=== PATIENT | female | born 1975 | race Caucasian/White ===

== ENCOUNTER 2017-12-10 15:44 | Outpatient (CLI) | payer BC ==
--- NOTE | 2017-12-12 18:02 | Mammography Report ---
DIGITAL SCREENING MAMMOGRAM: 12/10/2017 CLINICAL INDICATION: A 42-year-old for screening. COMPARISON: 09/2015, 03/2013. TECHNIQUE: Routine CC and MLO projections were obtained of the breasts. FINDINGS: The breasts again demonstrate heterogeneously dense fibroglandular parenchyma bilaterally. Coarse and punctate, typically benign calcifications are present. No suspicious masses, clustered microcalcifications, or regions of architectural distortion are identified. IMPRESSION: BENIGN FINDINGS. RECOMMENDATION: ROUTINE ANNUAL SCREENING UNLESS OTHERWISE CLINICALLY INDICATED. BIRADS category 2 benign findings. STANDARD QUALIFYING STATEMENTS 1. This examination was reviewed with the aid of Computed-Aided Detection (CAD). 2. A negative or benign imaging report should not delay biopsy if clinically suspicious findings are present. Consider surgical consultation if warranted. More than 5% of cancers are not identified by imaging. 3. Dense breasts may obscure an underlying neoplasm. TD: 12/12/2017 18:01
== END 2017-12-10 15:45 | disposition home or self-care (01) ==
LOC: DI.N 15:44
PROVIDERS: ATTEND Obstetrics & Gynecology
DX: Z12.31 Encounter for screening mammogram for malignant neoplasm of breast (principal)
CPT/HCPCS: 77067

== ENCOUNTER 2021-05-25 08:24 | Outpatient (CLI) | payer BC ==
--- NOTE | 2021-05-26 09:37 | Mammography Report ---
BILATERAL DIGITAL SCREENING MAMMOGRAM 3D/2D: 05/25/2021 CLINICAL: Routine screening. Comparison is made to exams dated: 12/10/2017 mammogram, 09/30/2015 mammogram, and 03/17/2013 mammogram - [facility]. The tissue of both breasts is extremely dense, which lowers the sen sitivity of mammography. There is an oval equal density asymmetry with an obscured and indistinct margin in the right breast m iddle depth medial region seen on the craniocaudal view only. No other significant masses, calcifications, or other findings are seen in either breast. IMPRESSION: INCOMPLETE: NEEDS ADDITIONAL IMAGING EVALUATION The oval equal density asymmetry in the right breast is indeterminate. Mediolateral and spot robert rosa views as well as additional views with possible ultrasound are recommended. This exam was interpreted at Station ID: [id number]. NOTE: For mammograms, a report in lay terms will be sent to the patient. Approximately 15% of breast malignancies will not be visualized mammographically. In the management of a palpable breast mass, a negative mammogram must not discourage biopsy of a clinically suspicious lesion. Electronically Signed By: Tim Ferrari M.D. ddp/penrad:05/25/2021 08:54:31 ACR BI-RADS Category 0: Incomplete 3340F PARENCHYMAL PATTERN: (VD) - The breast(s) demonstrate(s) extremely dense parenchyma, limiting the sen sitivity of mammography. BI-RADS CATEGORY: (0) - 0 Mammo and [place] [id number] Immediate follow-up LATERALITY: (B)
== END 2021-05-25 08:25 | disposition home or self-care (01) ==
LOC: DI.N 08:24
DX: Z12.31 Encounter for screening mammogram for malignant neoplasm of breast (principal)

== ENCOUNTER 2021-06-28 10:40 | Outpatient (CLI) | payer BC ==
--- NOTE | 2021-06-29 15:05 | Mammography Report ---
UNILATERAL RIGHT DIGITAL DIAGNOSTIC MAMMOGRAM 3D/2D: 06/28/2021 CLINICAL: Patient returns today to evaluate an asymmetry in the right breast. Comparison is made to exams dated: 05/25/2021 mammogram, 09/30/2015 mammogram, and 12/10/2017 mammogram - [facility]. The tissue of right breast is extremely dense, which lowers the sen sitivity of mammography. The previously seen asymmetry in the medial right breast partially disperses on spot compression view s and resembles normal fibroglandular tissue. No significant masses, calcifications, or other findings are seen in the breast. IMPRESSION: INCOMPLETE: NEEDS ADDITIONAL IMAGING EVALUATION Targeted ultrasound is recommended for further evaluation and will be performed immediately following this exam. This exam was interpreted at Station ID: [id number]. NOTE: For mammograms, a report in lay terms will be sent to the patient. Approximately 15% of breast malignancies will not be visualized mammographically. In the management of a palpable breast mass, a negative mammogram must not discourage biopsy of a clinically suspicious lesion. Electronically Signed By: Dylan de jesus/sona:06/28/2021 12:17:27 ACR BI-RADS Category 0: Incomplete 3340F PARENCHYMAL PATTERN: (VD) - The breast(s) demonstrate(s) extremely dense parenchyma, limiting the sen sitivity of mammography. BI-RADS CATEGORY: (0) - 0 Ultrasound [id number] Immediate follow-up LATERALITY: (R)
--- NOTE | 2021-06-29 15:05 | Ultrasound Report ---
LIMITED ULTRASOUND OF RIGHT BREAST: 06/28/2021 CLINICAL: Patient returns today to evaluate a focal asymmetry in the right breast. Comparison is made to exams dated: 06/28/2021 mammogram, 05/25/2021 mammogram, and 12/10/2017 mammogram - [facility]. Real-time ultrasound of the right breast 3-4 o'clock region was performed. Felix scale images of the real-time examination were reviewed. Fibroglandular tissue but no mass is identifed in the area of the mammographic asymmetry in the media l right breast. IMPRESSION: NEGATIVE No sonographic abnormality is seen corresponding to the mammographic asymmetry in the medial right br east, which is compatible with normal fibroglandular tissue. There is no sonographic evidence of malignancy. A 1 year screening mammogram is recommended. This exam was interpreted at Station ID: [id number]. Electronically Signed By: Dylan de jesus/sona:06/28/2021 12:21:03 Ultrasound BI-RADS: 1 Negative BI-RADS CATEGORY: (1) - 1 RECOMMENDATION: (ANNUAL) - Recommend routine annual screening mammography. [id number] 1 year screening LATERALITY: (B)
== END 2021-06-28 10:41 | disposition home or self-care (01) ==
LOC: DI 10:40
PROVIDERS: ATTEND Physician Assistant
DX: R92.8 Other abnormal and inconclusive findings on diagnostic imaging of breast (principal)

== ENCOUNTER 2022-06-14 14:37 | Outpatient (CLI) | payer BC ==
--- NOTE | 2022-06-15 12:35 | Mammography Report ---
BILATERAL DIGITAL SCREENING MAMMOGRAM 3D/2D: 06/14/2022 CLINICAL: Routine screening. Comparison is made to exams dated: 06/28/2021 mammogram, 05/25/2021 mammogram, 12/10/2017 mammogram, mammogram, and 03/17/2013 mammogram - [facility]. Both breasts are heterogeneously dense, which may obscure small masses (category c / 51-75% glandula r tissue). No significant masses, calcifications, or other findings are seen in either breast. There has been no significant interval change. IMPRESSION: NEGATIVE There is no mammographic evidence of malignancy. A 1 year screening mammogram is recommended. Based on the Tyrer Cuzick model (a risk assessment model) the patients lifetime risk is 11.3% and he r 10 year risk is 2.5%. According to the ACR, ACS, and NCCN guidelines, an annual breast MRI exam lyssa ng with mammogram is recommended if the patients lifetime risk is 20% or greater. This exam was interpreted at Station ID: [id number]. NOTE: For mammograms, a report in lay terms will be sent to the patient. Approximately 15% of breast malignancies will not be visualized mammographically. In the management of a palpable breast mass, a negative mammogram must not discourage biopsy of a clinically suspicious lesion. Electronically Signed By: Calos friedman/sona:06/14/2022 17:42:52 ACR BI-RADS Category 1: Negative 3341F PARENCHYMAL PATTERN: (D) - The breast(s) demonstrate(s) heterogeneously dense fibroglandular soila langston. BI-RADS CATEGORY: (1) - 1 RECOMMENDATION: (ANNUAL) - Recommend routine annual screening mammography. [id number] 1 year screening LATERALITY: (B)
== END 2022-06-14 14:38 | disposition home or self-care (01) ==
LOC: DI 14:37
PROVIDERS: ATTEND Family Medicine
DX: Z12.31 Encounter for screening mammogram for malignant neoplasm of breast (principal)

== ENCOUNTER 2023-06-19 15:36 | Outpatient (CLI) | payer BC ==
--- NOTE | 2023-06-21 11:22 | Mammography Report ---
BILATERAL DIGITAL SCREENING MAMMOGRAM 3D/2D: 06/19/2023 CLINICAL: Routine screening. Comparison is made to exams dated: 06/14/2022 mammogram, 06/28/2021 ultrasound, 06/28/2021 mammogram, mammogram, and 12/10/2017 mammogram - [facility]. Both breasts are heterogeneously dense, which may obscure small masses (category c / 51-75% glandular tissue). No significant masses, calcifications, or other findings are seen in either breast. There has been no significant interval change. IMPRESSION: NEGATIVE There is no mammographic evidence of malignancy. A 1 year screening mammogram is recommended. Based on the Tyrer Cuzick model (a risk assessment model) the patients lifetime risk is 11.5% and he r 10 year risk is 2.7%. According to the ACR, ACS, and NCCN guidelines, an annual breast MRI exam lyssa ng with mammogram is recommended if the patients lifetime risk is 20% or greater. This exam was interpreted at Station ID: [id number]. NOTE: For mammograms, a report in lay terms will be sent to the patient. Approximately 15% of breast malignancies will not be visualized mammographically. In the management of a palpable breast mass, a negative mammogram must not discourage biopsy of a clinically suspicious lesion. Electronically Signed By: Jaime cao/sona:06/20/2023 17:26:52 letter sent: No_Letter ACR BI-RADS Category 1: Negative 3341F PARENCHYMAL PATTERN: (D) - The breast(s) demonstrate(s) heterogeneously dense fibroglandular soila langston. BI-RADS CATEGORY: (1) - 1 Mammogram [id number] 1 year screening LATERALITY: (B)
== END 2023-06-19 15:37 | disposition home or self-care (01) ==
LOC: DI.N 15:36
PROVIDERS: ATTEND Nurse Practitioner Family
DX: Z12.31 Encounter for screening mammogram for malignant neoplasm of breast (principal)

== ENCOUNTER 2024-02-19 08:00 | Outpatient (CLI) | payer BC | END 2024-02-19 23:59 | disposition home or self-care (01) | LOC: LAB.N 08:00 | PROVIDERS: ATTEND Physician Assistant Medical | DX: N30.00 Acute cystitis without hematuria (principal) | CPT/HCPCS: 87086 ==

== ENCOUNTER 2024-05-16 07:31 | Outpatient (CLI) | payer BC ==
[2024-05-16 12:05] LABS: BASOPHILS % (AUTO) 0.3 %; EOSINOPHILS # (AUTO) 0.1 10^3/uL (0.0-0.7); EOSINOPHILS % (AUTO) 1.5 %; HCT - HEMATOCRIT 41.1 % (37.0-47.0); HGB - HEMOGLOBIN 12.9 g/dL (12.0-16.0); LYMPHOCYTES # (AUTO) 1.8 10^3/uL (1.5-3.5); LYMPHOCYTES % (AUTO) 30.9 %; MEAN CORPUSCULAR HEMOGLOBIN 29.9 pg (27.0-31.0); MEAN CORPUSCULAR HGB CONC 31.4 g/dL (32.0-36.0); MEAN CORPUSCULAR VOLUME 95.4 fL (81.0-99.0); MEAN PLATELET VOLUME 11.8 fL (7.9-10.8); MONOCYTES # (AUTO) 0.4 10^3/uL (0.0-1.0); MONOCYTES % (AUTO) 7.4 %; NEUTROPHILS # (AUTO) 3.5 10^3/uL (1.5-6.6); NEUTROPHILS % (AUTO) 59.7 %; PLT - PLATELET COUNT 194 10^3/uL (130-450); RED BLOOD COUNT 4.31 10^6/uL (4.20-5.40); WHITE BLOOD COUNT 5.8 x10^3/uL (4.8-10.8)
[2024-05-16 12:31] LABS: ALBUMIN 4.4 g/dL (3.2-5.5); ALBUMIN/GLOBULIN RATIO 1.8 (1.0-2.2); ALKALINE PHOSPHATASE 62 IU/L (42-121); ALT ALANINE AMINOTRANSFERASE 11 IU/L (10-60); AST ASPARTATE AMINOTRANSFERASE 14 IU/L (10-42); BILIRUBIN,TOTAL 0.5 mg/dL (0.2-1.0); BUN - BLOOD UREA NITROGEN 14 mg/dL (6-20); CALCIUM 9.5 mg/dL (8.5-10.3); CARBON DIOXIDE - CO2 29 mmol/L (21-32); CHLORIDE 101 mmol/L (101-111); CHOL/HDL RATIO 3.1 (<4.4); CHOLESTEROL 198 mg/dL; CREATININE 0.8 mg/dL (0.6-1.3); GFR - MDRD 76 (>89); GLUCOSE 90 mg/dL (74-104); HDL CHOLESTEROL 63 mg/dL; LDL CHOLESTEROL,CALCULATED 124 mg/dL; SODIUM 136 mmol/L (135-145); TOTAL PROTEIN 6.9 g/dL (6.4-8.9); TRIGLYCERIDES 56 mg/dL; VLDL CHOLESTEROL 11 mg/dL
[2024-05-16 12:33] LABS: THYROID STIMULATING HORMONE 1.28 uIU/mL (0.34-5.60)
== END 2024-05-16 07:32 | disposition home or self-care (01) ==
LOC: LAB.N 07:31
PROVIDERS: ATTEND Nurse Practitioner Family
DX: Z00.00 Encounter for general adult medical examination without abnormal findings (principal)
CPT/HCPCS: 36415; 80053; 80061; 83721; 84443; 85025

== ENCOUNTER 2024-06-10 10:32 | Outpatient (CLI) | payer BC ==
--- NOTE | 2024-06-11 11:36 | Mammography Report ---
BILATERAL DIGITAL SCREENING MAMMOGRAM 3D/2D: 06/10/2024 CLINICAL: Routine screening. Comparison is made to exams dated: 06/19/2023 mammogram, 06/14/2022 mammogram, and 05/25/2021 mammogram - [facility]. Both breasts are heterogeneously dense, which may obscure small masses (category c / 51-75% glandular tissue). No significant masses, calcifications, or other findings are seen in either breast. There has been no significant interval change. IMPRESSION: NEGATIVE There is no mammographic evidence of malignancy. A 1 year screening mammogram is recommended. Based on the Tyrer Cuzick model (a risk assessment model) the patient's lifetime risk is 12.5% and he r 10 year risk is 3.1%. According to the ACR, ACS, and NCCN guidelines, an annual breast MRI exam lyssa ng with mammogram is recommended if the patient's lifetime risk is 20% or greater. This exam was interpreted at Station ID: [id number]. NOTE: For mammograms, a report in lay terms will be sent to the patient. Approximately 15% of breast malignancies will not be visualized mammographically. In the management of a palpable breast mass, a negative mammogram must not discourage biopsy of a clinically suspicious lesion. Electronically Signed By: Jaime cao/sona:06/10/2024 12:58:34 letter sent: No_Letter ACR BI-RADS Category 1: Negative 3341F PARENCHYMAL PATTERN: (D) - The breast(s) demonstrate(s) heterogeneously dense fibroglandular soila langston. BI-RADS CATEGORY: (1) - 1 RECOMMENDATION: (ANNUAL) - Recommend routine annual screening mammography. [id number] 1 year screening LATERALITY: (B)
== END 2024-06-10 10:33 | disposition home or self-care (01) ==
LOC: DI.N 10:32
DX: Z12.31 Encounter for screening mammogram for malignant neoplasm of breast (principal); R92.333 Mammographic heterogeneous density, bilateral breasts

== ENCOUNTER 2024-06-30 15:53 | Outpatient (CLI) | payer BC ==
--- NOTE | 2024-07-01 21:52 | Ultrasound Report ---
PROCEDURE: Pelvic w/Transvaginal INDICATIONS: AUB TECHNIQUE: Transabdominal/transvaginal ultrasound of the pelvis was obtained. Endovaginal scanning wa s necessary due to incomplete visualization of the adnexal and endometrial structures by transabdomin al scanning. COMPARISON: None. FINDINGS: Uterine size: Uterus measures 7.7 x 4.9 x 5.5 cm, and is anteverted. Myometrium: The myometrium is homogeneous. Endometrium: The endometrium measures 7.5 mm in combined thickness. Right ovary: Unremarkable Left ovary: Unremarkable Other: No pathologic free abdominal or pelvic fluid. IMPRESSION: Unremarkable ultrasound of the pelvis Reviewed by: Jaun Hayden MD on 07/01/2024 8:51 PM MARY Approved by: Jaun Hayden MD on 07/01/2024 8:51 PM MARY Station ID: [id number]
== END 2024-06-30 15:54 | disposition home or self-care (01) ==
LOC: DI 15:53
PROVIDERS: ATTEND Nurse Practitioner Family
DX: N93.9 Abnormal uterine and vaginal bleeding, unspecified (principal)